=== PATIENT | female | born 1970 | race Caucasian/White ===

== ENCOUNTER 2020-02-03 10:25 | Emergency (ER) | payer OTHER, MEDICAID, SELFPAY ==
--- NOTE | ~2020-02-03 | XR_ITS ---
XR hip RT min 3V w AP pelvis 02/03/2020 11:46 Indication: Right hip pain Procedure: AP pelvis and 3 views right hip Comparison: No prior studies for comparison. Findings: Pelvic rings are intact. Mild osteoarthritis of the hips. Sacral foramen are symmetric. No focal soft tissue abnormality. No foreign bodies. No fracture or traumatic malalignment. Impression: 1: Mild symmetric osteoarthritis of the hips. Reviewed, dictated and finalized at location B. Impression: 1: Mild symmetric osteoarthritis of the hips.
--- NOTE | ~2020-02-03 | XR_ITS ---
XR knee RT min 4V 02/03/2020 11:46 Indication: Right knee pain Procedure: 4 views right knee Comparison: No prior studies for comparison. Findings: No fracture, subluxation or dislocation. No joint effusion. No foreign body. Impression: 1: No acute bone or joint abnormality. Reviewed, dictated and finalized at location B. Impression: 1: No acute bone or joint abnormality.
[2020-02-03 10:51] VITALS: BP 112/99; PULSE 89; RESP 16; O2SAT 93
[2020-02-03 11:01] VITALS: BP 122/82; PULSE 88; RESP 17; O2SAT 100
--- NOTE | 2020-02-03 11:37 | ED.LOWEXIN ---
HPI - Extremity Injury (Lower) General Chief Complaint: Extremity Injury, Lower Stated Complaint: rt knee pain radiating to hip Time Seen by Provider: 02/03/20 11:12 Source: patient Mode of arrival: ambulatory Limitations: no limitations History of Present Illness HPI Narrative: This is a 49 year old female that presents to the ER for right knee pain since yesterday. Reports history of problems with this knee. Reports she started to have pain again yesterday. Reports this morning she was stepping up onto a curb and the pain worsened. Reports the pain now radiates to her right hip. Worse with movement and relieved with rest. She did take some Aleve this morning. Denies fever, erythema, edema, decreased range of motion or numbness. Related Data Home Medications Medication Instructions Recorded Confirmed No Home Medications 02/03/20 02/03/20 Allergies Allergy/AdvReac Type Severity Reaction Status Date / Time Tetanus Vaccines and Toxoid Allergy Unknown Unknown Verified 02/03/20 11:04 DIAL SOAP Allergy Mild Rash Uncoded 05/01/14 15:00 Review of Systems Review of Systems: Narrative: CONSTITUTIONAL: Denies fever SKIN: Denies rash MUSCULOSKELETAL: Reports joint pain, and myalgia. NEUROLOGIC: Denies numbness, or weakness. All systems reviewed & are unremarkable except as noted in HPI and below PMFSH Surgical History Surgical History (Updated 02/03/20 @ 11:38 by Dee Granger PA-C) History of section Social History Social History (Updated 02/03/20 @ 11:37 by Dee Granger PA-C) Smoking status: Current every day smoker Gender identity (if verbalized by the patient): Female Exam Narrative: Exam Narrative: GENERAL: Well-appearing, well-nourished, and in no acute distress. HEAD: Normocephalic, atraumatic. EYES: EOMI. CHEST: Clear to auscultation. No respiratory distress. No wheezes rales or rhonchi HEART: Regular rate and rhythm. No murmur heard. Normal peripheral pulses. BACK: No midline spinal tenderness EXTREMITIES: Normal range of motion. No edema. Strength equal in bilateral lower extremities (5/5) SKIN: Warm, dry, no rash. NEURO: No focal deficits. Alert and oriented x3. PSYCH: Normal mood and affect Course Vital Signs Vital signs: Vital Signs Pulse Rate 89 02/03/20 10:51 Respiratory Rate 16 02/03/20 10:51 Blood Pressure 112/99 H 02/03/20 10:51 Pulse Oximetry 93 02/03/20 10:51 Pulse Rate 88 02/03/20 11:01 Respiratory Rate 17 02/03/20 11:01 Blood Pressure 122/82 02/03/20 11:01 Pulse Oximetry 100 02/03/20 11:01 MDM - Extremity Injury (Lower) MDM Narrative Medical decision making narrative: Patient presents to the emergency department for right knee and right hip pain. Patient neurologically intact. Vitals are stable. X-rays of the right knee and hip were without acute findings. Patient after being seen by me and having her imaging done Imaging Data Radiologist's impression: ITS Impressions Knee X-Ray 02/03/20 11:52 Impression: 1: No acute bone or joint abnormality. Hip/Pelvis X-Ray 02/03/20 11:54 Impression: 1: Mild symmetric osteoarthritis of the hips. Critical Care Time Critical Care Time Critical Care Time: No Discharge Plan Discharge Clinical Impression: Acute pain of right hip, Acute pain of right knee Patient Disposition: [facility] Seen by Prov Condition: Stable Prescriptions: No Action No Home Medications RF: 0 Follow-up/Referrals: PHYSICIAN,MANAGER OF LOSS PREVENTION OPERATIONS [Primary Care Provider] -
== END 2020-02-03 14:13 | disposition left against medical advice (07) ==
PROVIDERS: Emergency Provider Emergency Medicine
DX: M25.561 Pain in right knee (principal); M25.551 Pain in right hip; F17.200 Nicotine dependence, unspecified, uncomplicated; M16.0 Bilateral primary osteoarthritis of hip
CPT/HCPCS: 73502; 73564; 99284

== ENCOUNTER 2021-01-30 11:02 | Emergency (ER) | payer MEDICAID, SELFPAY ==
[2021-01-30 11:16] VITALS: BP 138/78; PULSE 97; RESP 16; TEMP 36.1; O2SAT 100
--- NOTE | 2021-01-30 11:44 | ED.EAR ---
HPI - Ear Problem General Chief complaint: Ear Stated complaint: Ear Pain Source: patient Mode of arrival: ambulatory Limitations: no limitations History of Present Illness HPI Narrative: Patient presents for evaluation of right-sided ear pain for the last few days. She indicates prior to that time she was explaining quite a bit of sinus congestion and drainage. She was blowing her nose quite frequently. She is taking some allergy medication thought her symptoms were related to that. Within the last few days she has felt like her ear is clogged . She is experienced some mild tinnitus but does not believe she has had any hearing loss. She has a history of recurrent ear infections but has not had an infection in about 5 years. No fever, chills, sore throat, pain over the mastoid bone. She smokes approximately 5 cigarettes/day. Related Data Allergies Allergy/AdvReac Type Severity Reaction Status Date / Time Tetanus Vaccines and Toxoid Allergy Unknown Unknown Verified 01/30/21 11:23 DIAL SOAP Allergy Mild Rash Uncoded 01/30/21 11:23 Review of Systems Review of Systems: Narrative: CONSTITUTIONAL: Denies fever, chills, or sweats. EYES: Denies visual changes, redness, or discharge. ENT: Reports sinus congestion and drainage. Reports right-sided otalgia sensation of right ear pain being clogged . Reports mild tinnitus in the right side without hearing loss. Denies drainage from the right ear. CARDIOVASCULAR: Denies chest pain, palpitations, or edema. RESPIRATORY: Denies cough or dyspnea. GASTROINTESTINAL: Denies abdominal pain, nausea, vomiting, or diarrhea. GENITOURINARY: Denies dysuria or hematuria. SKIN: Denies rash or itching. MUSCULOSKELETAL: Denies back pain, joint pain, or myalgia. NEUROLOGIC: Denies headache, numbness, dizziness, or weakness. PSYCHIATRIC: Denies anxiety or depression. [facility] Past Medical History Medical History History of recurrent ear infection Surgical History Surgical History History of section Family History Family History Mother No pertinent past medical history Social History Social History (Updated 01/30/21 @ 11:48 by Vladislav Small, [facility], ) Smoking status: Current every day smoker Additional smoking assessment comments: Quarter pack per day Substance use: current Substance use type: marijuana Gender identity (if verbalized by the patient): Female Spiritual care concerns: No Exam Narrative: Exam Narrative: GENERAL: Well-appearing, well-nourished, and in no acute distress. HEAD: Normocephalic, atraumatic. EYES: PERRLA and EOMI. ENT: Nares clear, no rhinorrhea or epistaxis. Mucous membranes moist. Oropharynx without tonsillar hypertrophy exudate or other lesions. Left TM intact without significant erythema. No retraction or bulging. Unable to visualize right tympanic membrane secondary to white/yellow exudate in right ear canal and associated edema of the canal itself. NECK: Supple. No adenopathy or masses. No carotid bruits or JVD CHEST: Clear to auscultation. No respiratory distress. No wheezes rales or rhonchi HEART: Regular rate and rhythm. No murmur heard. Normal peripheral pulses. ABDOMEN: Soft, nontender, nondistended, normal active bowel sounds. EXTREMITIES: Normal range of motion. No edema. SKIN: Warm, dry, no rash. NEURO: No focal deficits. Alert and oriented x3. PSYCH: Normal mood and affect. Course Course Emergency Course: This is a 50-year-old female who presented with complaints of right-sided otalgia. On physical exam there is a white/yellow exudate in her ear canal. Attempted to irrigate with hydrogen peroxide and normal saline. Minimal improvement after irrigation. I did offer to continue to try to irrigate the right ear. She declined. She could have an [facility]
== END 2021-01-30 11:55 | disposition home or self-care (01) ==
PROVIDERS: Emergency Provider Nurse Practitioner
DX: H66.91 Otitis media, unspecified, right ear (principal); H60.511 Acute actinic otitis externa, right ear; F17.200 Nicotine dependence, unspecified, uncomplicated
CPT/HCPCS: 99213; G0463